=== PATIENT | female | born 1940 | race Caucasian/White ===

== ENCOUNTER 2018-07-03 21:44 | Observation (INO) | payer MEDICARE, BC ==
[2018-07-03] MEDS ORDERED: Ondansetron 4 MG/2 ML SDV IV ONE (22:44)
[2018-07-03] MEDS ORDERED: Lactated Ringers 1,000 ML IV ONE (22:52)
[2018-07-03 23:06] LABS: ANION GAP 18.2; CHLORIDE,CL 98 mmol/L (101-111); SODIUM,NA 136 mmol/L (135-145)
[2018-07-03] MEDS ORDERED: Famotidine 20 MG/2 ML SDV IVPUSH ONE (23:26)
[2018-07-03] MEDS ORDERED: Potassium Chloride 10 MEQ in Premix Bag 1 BAG IV ONE (23:26)
[2018-07-03] MEDS ORDERED: Sodium Chloride 0.9% 500 ML IV SCH (23:30)
[2018-07-04] MEDS ORDERED: Metoclopramide 10 MG/2 ML SDV IVPUSH ONE (01:07)
--- NOTE | 2018-07-04 01:16 | EDM.PDOC ---
ED HPI GENERAL MEDICAL PROBLEM - General Chief Complaint: Gastrointestinal Problem Stated Complaint: NOT FEELING GOOD Time Seen by Provider: 07/03/18 21:55 Source of Information: Reports: Patient History Limitations: Reports: No Limitations - History of Present Illness INITIAL COMMENTS - FREE TEXT/NARRATIVE: ED with c/o not feeling well today, nauseated all day vomited 7-8 times last one hour [employer]. Feeling weak tonight. Multiple diarrhea stools throughout day. Denies pain. One brown emesis, follwed by clear yellow liuid emesis. No bloody or dark stools no fever. Mild selling lower extremities no change from usual. No headache. Increased magnesium on Monday from 400 daily to 400 twice daily, no sx with change. No family members ill. - Related Data Allergies Allergy/AdvReac Type Severity Reaction Status Date / Time No Known Allergies Allergy Verified 07/03/18 21:54 Home Meds: Home Meds Acetaminophen [Tylenol] 1,300 mg PO BEDTIME 07/03/18 [History] Biotin 5 mg PO DAILY 07/03/18 [History] Calcium Carbonate/Vitamin D3 [Calcium 600 + Vit D Tablet] 1 each PO DAILY [History] Cetirizine [ZyrTEC] 10 mg PO DAILY 07/03/18 [History] Cholecalciferol (Vitamin D3) [Vitamin D3] 1,000 unit PO DAILY 07/03/18 [History] Fish Oil/Marion-3 Fatty Acids [Fish Oil 1,000 MG] 1 gm PO DAILY 07/03/18 [History ] Folic Acid 0.8 mg PO DAILY 07/03/18 [History] Lutein 6 mg PO DAILY 07/03/18 [History] Magnesium Oxide [Magnesium] 800 mg PO DAILY 07/03/18 [History] Methotrexate Sodium [Methotrexate] 15 mg PO WEEKLY 07/03/18 [History] Simvastatin [Zocor] 10 mg PO BEDTIME 07/03/18 [History] Triamterene/Hydrochlorothiazid [Triamterene-HCTZ 37.5-25 MG] 1 cap DAILY [History] Turmeric 400 mg PO DAILY 07/03/18 [History] Past Medical History HEENT History: Reports: Impaired Vision Other HEENT History: wears glasses Cardiovascular History: Reports: High Cholesterol, Hypertension Musculoskeletal History: Reports: RA Oncologic (Cancer) History: Reports: Breast - Past Surgical History Musculoskeletal Surgical History: Reports: Hip Replacement Other Musculoskeletal Surgeries/Procedures:: right hip Oncologic Surgical History: Reports: Mastectomy Other Oncologic Surgeries/Procedures: left breast Social & Family History - Family History Family Medical History: Noncontributory - Tobacco Use Smoking Status *Q: Never Smoker - Caffeine Use Caffeine Use: Reports: Coffee - Recreational Drug Use Recreational Drug Use: No ED ROS GENERAL - Review of Systems Review Of Systems: ROS reveals no pertinent complaints other than HPI. ED EXAM, GI/ABD - Physical Exam Exam: See Below Exam Limited By: No Limitations General Appearance: Alert, Mild Distress Eyes: Bilateral: EOMI Ears: Normal External Exam Nose: Normal Inspection Throat/Mouth: Normal Inspection Head: Atraumatic, Normocephalic Neck: Normal Inspection Respiratory/Chest: No Respiratory Distress, Lungs Clear, Normal Breath Sounds Cardiovascular: Normal Peripheral Pulses, Regular Rate, Rhythm GI/Abdominal Exam: Abnormal Bowel Sounds (hyperactive). No: Distended, Guarding , Tender Back Exam: Full Range of Motion Extremities: Pedal Edema (1+) Neurological: Alert, Oriented, Normal Cognition, Normal Gait (with walker), No Motor/Sensory Deficits Psychiatric: Normal Affect, Normal Mood Skin Exam: Warm, Dry, Intact, Pallor Course - Vital Signs Last Recorded V/S: Last Vital Signs Temp 98.7 F 07/03/18 21:52 Pulse 96 07/03/18 21:52 Resp 19 07/03/18 21:52 BP 188/89 H 07/03/18 21:52 Pulse Ox 97 07/03/18 21:52 - Orders/Labs/Meds Orders: Active Orders 24 hr Category Date Time Status MAGNESIUM [CHEM] Stat Lab 07/04/18 00:00 Received UA RFX LEVON AND CULT IF INDIC [URIN] Urgent Lab 07/03/18 22:29 Ordered Sodium Chloride 0.9% [Normal Saline] 500 ml Med 07/03/18 23:30 Active IV .BOLUS Medication Orders Sodium Chloride (Normal Saline) 500 mls @ 100 mls/hr IV .BOLUS BINA Last Admin: 07/03/18 23:36 Dose: 100 mls/hr Labs: Laboratory Tests 07/03/18 07/03/18 Range/Units 22:01 22:01 WBC 7.6 (5.0-10.0) 10^3/uL RBC 4.42 (4.2-5.4) 10^6/uL Hgb 15.0 (12.0-16.0) g/dL Hct 42.8 (37.0-47.0) % MCV 96.8 (80-100) fL MCH 33.9 (27.0-34.0) pg MCHC 35.0 (33.0-35.0) g/dL Plt Count 257 (150-450) 10^3/uL Neut % (Auto) 78.9 H (42.2-75.2) % Lymph % (Auto) 14.7 L (20.5-50.1) % Gosper % (Auto) 5.4 (2-8) % Eos % (Auto) 0.5 L (1.0-3.0) % Baso % (Auto) 0.5 (0.0-1.0) % Sodium 136 (135-145) mmol/L Potassium 3.2 L (3.6-5.0) mmol/L Chloride 98 L (101-111) mmol/L Carbon Dioxide 23.0 (21.0-31.0) mmol/L Anion Gap 18.2 BUN 15 (7-18) mg/dL Creatinine 0.7 (0.6-1.3) mg/dL Est Cr Clr Drug Dosing 54.08 mL/min Estimated GFR (MDRD) > 60 BUN/Creatinine Ratio 21.42 Glucose 128 H (74-105) mg/dL Calcium 9.6 (8.4-10.2) mg/dl Total Bilirubin 0.9 (0.2-1.0) mg/dL AST 28 (10-42) IU/L ALT 16 (10-60) IU/L Alkaline Phosphatase 80 (42-121) IU/L Troponin I < 0.02 (0.00-0.02) ng/ml B-Natriuretic Peptide 104 H (0-100) pg/ml Total Protein 6.7 (6.7-8.2) g/dl Albumin 3.8 (3.2-5.5) g/dl Globulin 2.9 Albumin/Globulin Ratio 1.31 Amylase 95 (28-100) U/L Lipase 27 (22-51) U/L Meds: Medications Generic Name Dose Route Start Last Admin Trade Name Freq PRN Reason Stop Dose Admin Sodium Chloride 500 mls @ 100 mls/hr 07/03/18 23:30 07/03/18 23:36 Normal Saline IV 100 mls/hr .BOLUS BINA Administration Discontinued Medications Generic Name Dose Route Start Last Admin Trade Name Hubert PRN Reason Stop Dose Admin Famotidine 20 mg 07/03/18 23:26 07/03/18 23:36 Pepcid IVPUSH 07/03/18 23:27 20 mg ONETIME ONE Administration Lactated Ringer's 1,000 mls @ 999 mls/hr 07/03/18 22:52 07/03/18 22:56 Ringers, Lactated IV 07/03/18 23:52 999 mls/hr .BOLUS ONE Administration Potassium Chloride 10 meq/ 100 mls @ 100 mls/hr 07/03/18 23:26 07/03/18 23:37 Premix IV 07/04/18 00:25 100 mls/hr ONETIME ONE Administration Metoclopramide HCl 5 mg 07/04/18 01:07 Reglan IVPUSH 07/04/18 01:08 ONETIME ONE Ondansetron HCl 4 mg 07/03/18 22:44 07/03/18 22:56 Zofran IV 07/03/18 22:45 4 mg ONETIME ONE Administration - Re-Assessments/Exams Free Text/Narrative Re-Assessment/Exam: 07/04/18 01:22 nausea improved but continues, mild dizziness with position change, does fair ambulating with walker. TC consult Dr Landin accepting patient observation status, Vitals stable, No orthostatic change from sitting to standing. Departure - Departure Time of Disposition: 01:18 Disposition: Refer to Observation Condition: Good Clinical Impression: Gastroenteritis, HX: breast cancer Hypertension Qualifiers: Hypertension type: essential hypertension Qualified Code(s): I10 - Essential ( primary) hypertension Rheumatoid arthritis Qualifiers: Rheumatoid arthritis location: multiple sites Rheumatoid factor presence: unspecified presence Qualified Code(s): M06.9 - Rheumatoid arthritis, unspecified - Discharge Information *PRESCRIPTION DRUG MONITORING PROGRAM REVIEWED*: Not Applicable *COPY OF PRESCRIPTION DRUG MONITORING REPORT IN PATIENT HEIDI: Not Applicable Referrals: Chayo Chavis MD [Primary Care Provider] - Forms: ED Department Discharge - My Orders Last 24 Hours: My Active Orders 07/03/18 22:29 UA RFX LEVON AND CULT IF INDIC [URIN] Urgent 07/03/18 23:30 Sodium Chloride 0.9% [Normal Saline] 500 ml IV .BOLUS 07/04/18 00:00 MAGNESIUM [CHEM] Stat - Assessment/Plan Last 24 Hours: My Active Orders 07/03/18 22:29 UA RFX LEVON AND CULT IF INDIC [URIN] Urgent 07/03/18 23:30 Sodium Chloride 0.9% [Normal Saline] 500 ml IV .BOLUS 07/04/18 00:00 MAGNESIUM [CHEM] Stat
[2018-07-04] MEDS ORDERED: Ondansetron 4 MG/2 ML SDV IVPUSH PRN (02:15)
[2018-07-04] MEDS ORDERED: Promethazine 25 MG/ML SDV IM PRN (02:15)
[2018-07-04] MEDS ORDERED: Acetaminophen 325 MG Tab PO PRN (02:15)
[2018-07-04] MEDS ORDERED: Pantoprazole 40 MG Vial IVPUSH ONE (02:15)
[2018-07-04] MEDS ORDERED: Magnesium Sulfate/Water 2 GM in Premix Bag 1 BAG IV ONE (02:19)
[2018-07-04] MEDS ORDERED: NS + KCl 20mEq/L 1,000 ML IV SCH (02:30)
--- NOTE | 2018-07-04 03:31 | HP ---
CHIEF COMPLAINT: Nausea, vomiting, and diarrhea. HISTORY OF PRESENTING ILLNESS: Mrs. Lenka Sousa is a 78-year-old female with a medical history significant for hypertension; hyperlipidemia; rheumatoid arthritis; history of breast cancer, status post mastectomy; history of hemorrhoids and osteoarthritis with pityriasis rosea history, presented to the ER with complaints of nausea, vomiting, and diarrhea, and complaints of dizziness leading to dehydration, requiring admission to the hospital. At this time, the patient claims that the nausea, vomiting, and diarrhea started yesterday, and has been progressively getting worse. She had at least 5 to 6 episodes of vomiting and 3 to 4 episodes of loose stools consistent with diarrhea. Her stays with her, but he apparently is in normal health. She denies any recent exposure to bad food. She claims that recently her medication was changed, her magnesium was increased to 800 mg from 400 mg, so she is unsure if that is leading to her gastroenteritis symptoms. She denied any fevers or chills in the last few days. No complaints of hematemesis, hematochezia, or melenic stools. No complaints of chest pain. No complaints of shortness of breath. No complaints of abdominal pain at this time. No complaints of cough with sputum in the last few days. The patient denied any history of chest pains on exertion. No history of dyspnea on exertion. No history of orthopnea or paroxysmal nocturnal dyspnea. The patient denied any history of hematemesis, hematochezia, or melenic stools in the past. Normal bowel and bladder habits otherwise. REVIEW OF SYSTEMS: A complete review of systems including skin; ear, nose, and throat; cardiovascular system; respiratory system; gastrointestinal system; genitourinary system; hematology; oncology; neurology; allergy; immunology; constitutional were all evaluated and were negative except for the above-said notes. PAST MEDICAL HISTORY: Significant for hypertension; hyperlipidemia; rheumatoid arthritis; allergic rhinitis; history of hemorrhoids; and history of breast neoplasm, status post mastectomy. PAST SURGICAL HISTORY: Significant for total hip replacement, mastectomy, colonoscopy, and bilateral tubal destruction. FAMILY HISTORY: Significant for diabetes in her father, sister with breast cancer and brother with diabetes, 1 brother with prostate cancer, and maternal aunt with breast cancer and ovarian cancer. SOCIAL HISTORY: The patient denies any history of smoking tobacco. No history of alcohol intake. ALLERGIES: No known drug allergies. HOME MEDICATIONS: Include, 1. Turmeric 400 mg daily. 2. Triamterene-hydrochlorothiazide 1 capsule daily. 3. Simvastatin 10 mg at bedtime. 4. Methotrexate 15 mg weekly. 5. Magnesium oxide 800 mg daily. 6. Lutein 6 mg daily. 7. Cetirizine 10 mg daily. 8. Biotin 5 mg daily. 9. Tylenol 1300 mg at bedtime. 10.Folic acid 0.8 mg daily. 11.Vitamin D3, 1000 units daily. PHYSICAL EXAMINATION: Vital Signs: Temperature of 98.7, pulse of 96, blood pressure 188/89, respiratory rate of 19, and saturating at 97% on room air. General Appearance: The patient is well oriented to time, place, and person. Follows commands spontaneously. Cardiovascular System: S1, S2 heard with normal intensity. No gallops. Respiratory System: Clear to auscultation bilaterally. No wheeze. No crepitations. Abdomen: Soft. Bowel sounds positive. Nontender. No rigidity. Extremities: No edema in bilateral lower extremities. Neurologic: No gross focal neurological deficits. LABORATORY DATA: 1. WBC 7.6, hemoglobin 15, hematocrit 42.8, platelet count 257. 2. Sodium 136, potassium 3.2, chloride 98, bicarb 23, BUN 15, creatinine 0.7, glucose 128, magnesium 1.4, troponin 0.02, BNP 104. 3. Albumin 3.8. ASSESSMENT: 1. Acute gastroenteritis. 2. Acute hypokalemia. 3. Hypomagnesemia. 4. Hypertension. 5. Hyperlipidemia. 6. History of rheumatoid arthritis. 7. History of breast cancer in the past. PLAN: 1. Acute gastroenteritis: The patient presents with nausea, vomiting, and diarrhea, and is noted to have acute gastroenteritis, exact etiology is not clear. The patient claims that her magnesium oxide dose has been increased to 800 mg, and claims that after increasing the dose, she has been experiencing more nausea and vomiting. The patient will be admitted to the hospital. We will have her on antiemetic protocol. We will keep her hydrated with IV fluids. If she continues to have diarrhea, then one might consider getting stool for ova, cyst, and parasite and culture. We will closely follow. 2. Acute dehydration: The patient is noted to be dehydrated. She is complaining of dizziness on ambulation. We will continue with IV fluids for now. We will recheck orthostatic vitals after she is done with her IV fluids. 3. Hypokalemia: We will replace with IV and oral potassium chloride. We will mix 20 mEq to the IV bag and then check a BMP in the next 8 hours. 4. Hypomagnesemia: Recently, her dose has been increased to 800 mg and still continues to have hypomagnesemia. We will replace with IV magnesium while in the hospital. We will closely follow. 5. DVT prophylaxis: We will have her on Lovenox for DVT prophylaxis. 6. Hypertension: The patient's blood pressure seems to be elevated, unsure if this is resulting from stress. She is noted to be on triamterene- hydrochlorothiazide, which would be a bad medication especially given her electrolyte imbalance. We will try to switch her to either DELIA inhibitor or a calcium channel pipo for better control of the blood pressure. We will closely follow. We will hold her diuretic at this time. 7. Code status: The patient wants to be full code. 8. Discussed with [facility] staff regarding the plan of care. Reviewed the labs and medications. Reviewed the old charts. [facility] /[id number]
[2018-07-04] MEDS ORDERED: Enoxaparin 40 MG/0.4 ML Syringe SUBCUT SCH (09:00)
[2018-07-04] MEDS ORDERED: Non-Formulary Medication 1 Each (Folic Acid [Folic Acid] 0.8 MG) PO SCH (09:00)
[2018-07-04] MEDS: Enoxaparin 30 MG/0.3 ML Syringe SUBCUT SCH (09:19)
[2018-07-04 10:30] LABS: ANION GAP 15.4; CHLORIDE,CL 100 mmol/L (101-111); SODIUM,NA 135 mmol/L (135-145)
[2018-07-04] MEDS ORDERED: Magnesium Sulfate/D5W 2 GM in Premix Bag 1 BAG IV ONE (11:00)
[2018-07-04] MEDS ORDERED: Sodium Chloride 0.9% 10 ML Syringe FLUSH PRN (11:20)
[2018-07-04] MEDS: Sodium Chloride 0.9% with KCl 1,000 ML IV SCH ×2 (11:34→21:51)
[2018-07-04] MEDS ORDERED: Magnesium Sulfate/Water 2 GM in Premix Bag 1 BAG IV SCH (12:00)
[2018-07-04] MEDS: Folic Acid 1 MG Tab PO SCH (16:45)
[2018-07-04 18:55] LABS: ANION GAP 13.7; CHLORIDE,CL 105 mmol/L (101-111); SODIUM,NA 138 mmol/L (135-145)
[2018-07-04] MEDS: Simvastatin 10 MG Tab PO SCH (20:36)
[2018-07-04] MEDS: Acetaminophen 325 MG Tab PO SCH (20:37)
[2018-07-05 07:07] LABS: ANION GAP 12.9; CHLORIDE,CL 105 mmol/L (101-111); SODIUM,NA 136 mmol/L (135-145)
[2018-07-05] MEDS: Sodium Chloride 0.9% with KCl 1,000 ML IV SCH ×2 (08:10→19:21)
[2018-07-05] MEDS: Folic Acid 1 MG Tab PO SCH (08:16)
[2018-07-05] MEDS: Enoxaparin 30 MG/0.3 ML Syringe SUBCUT SCH (08:16)
[2018-07-05] MEDS ORDERED: Loratadine 10 MG Tab PO SCH (09:00)
[2018-07-05] MEDS ORDERED: Magnesium Sulfate/Water 2 GM in Premix Bag 1 BAG IV ONE (12:00)
[2018-07-05] MEDS: Calcium Gluconate 1 GM in Sodium Chloride 0.9% 100 ML IV SCH ×2 (13:46→17:55)
--- NOTE | 2018-07-05 13:56 | PN ---
DATE: 07/05/2018 SUBJECTIVE: Lenka is a 78-year-old woman who was admitted early yesterday morning for significant weakness after almost 12 hours of both vomiting as well as diarrhea. She had been feeling well up until that point. There was no concern about food poisoning. There has been quite a bit of viral gastroenteritis in the community as of late. Of particular note, Lenka does have a past history of low magnesium as well as occasional hypokalemia and doing a chart review, it appears as though her calcium also runs on the low end of normal. Upon her admission, she was concerned that possibly having her magnesium dose increased had caused her gastroenteritis, but she has done well since admission, and her diarrhea has lessened significantly. Upon admission, she was found to be quite low with her magnesium as well as her potassium. These have both been replaced IV on multiple occasions since admission. This morning, as I approach, eLnka reports that she is feeling quite a bit better, no longer feels that same weakness, and was able to get up to the bathroom under her own power without difficulty this morning. OBJECTIVE: Vital Signs: This morning, I had them do orthostatic blood pressures this morning. She was 149/83 lying down, 183/84 sitting up, and 182/85 standing. Heart rate was 76. Of note, with those orthostatic blood pressures, her heart rate did not increase significantly between laying and standing. Respiratory rate 16. O2 sat 97% on room air. General: Lenka is a pleasant 78-year-old woman in no acute distress. She is alert and oriented x3. HEENT: Oropharynx is clear. Mucous membranes are moist. Heart: Regular rate and rhythm. No murmurs noted. Lungs: Clear to auscultation throughout. Neurologic: She is moving all of her extremities well. She is alert and oriented x3. Cranial nerves 2 through 12 are grossly intact. LABORATORY DATA: Laboratory work this morning includes; hemoglobin of 13.1, potassium 3.9, sodium 136, chloride 105, creatinine 0.5; calcium 8.2, down from 8.4 yesterday. Phosphorus 2.2, down from 3.0 on admission. Magnesium is 1.6 today, was 1.7 yesterday morning; after replacement yesterday, it had increased to 2.0. ASSESSMENT: A 78-year-old woman admitted for, 1. Significant weakness and dehydration, secondary to vomiting and diarrhea. 2. Hypocalcemia. 3. Hypomagnesemia. 4. Hypophosphatemia. 5. Current history of rheumatoid arthritis, currently on methotrexate. PLAN: 1. We will replace her calcium and magnesium today, and recheck those levels as well as her phosphate level in the morning. 2. We will need to get her up and ambulating today and keep an eye on those blood pressures. I am concerned that her blood pressure is going up with activity. She does have a history of essential hypertension. 3. Because of her electrolyte replacement needs, I do not anticipate discharge until we get those stabilized. [facility] /[id number]
[2018-07-05] MEDS ORDERED: Famotidine 20 MG Tab PO PRN (17:17)
[2018-07-05] MEDS: Acetaminophen 325 MG Tab PO SCH (21:13)
[2018-07-05] MEDS: Simvastatin 10 MG Tab PO SCH (21:13)
[2018-07-06] MEDS: Sodium Chloride 0.9% with KCl 1,000 ML IV SCH (05:31)
[2018-07-06 07:16] LABS: ANION GAP 12.2; CHLORIDE,CL 107 mmol/L (101-111); SODIUM,NA 138 mmol/L (135-145)
[2018-07-06] MEDS: Folic Acid 1 MG Tab PO SCH (09:02)
[2018-07-06] MEDS: Enoxaparin 30 MG/0.3 ML Syringe SUBCUT SCH (09:02)
--- NOTE | 2018-07-07 07:14 | DISCH ---
HISTORY OF PRESENT ILLNESS: Lenka is a 78-year-old woman who was admitted with weakness as well as dehydration after having several hour history of nausea, vomiting, and diarrhea. She was noted to have multiple electrolytes abnormalities upon her presentation to the ER as well. HOSPITAL COURSE: Lenka was placed inpatient and given fluid rehydration as well as electrolyte replacement, including potassium and magnesium. On hospital day #1, she was still found to be low of both calcium and magnesium, so those were again replaced IV. By hospital day #2 day of discharge, she was feeling well, able to ambulate without any dizziness or issues, and was deemed suitable for discharge home. As her triamterene/hydrochlorothiazide had been held upon admission, her blood pressures were significantly elevated into the 160s and 170s systolic. She was not having any headache or vision changes because of this. DISCHARGE DIAGNOSES: 1. Acute dehydration secondary to vomiting and diarrhea, resolved. 2. Acute viral gastroenteritis, resolved. 3. Electrolyte imbalance secondary to dehydration as well as chronic diuretic use for hypertension. 4. Essential hypertension. PLAN: 1. She is discharged home today. 2. We will discontinue the triamterene/hydrochlorothiazide for now, I will switch her over to losartan and see if we can still get good blood pressure control without the chronic electrolyte abnormalities that we have been dealing with. 3. We will have her follow up with her primary care provider, Dr. Chavis, one of our partners next week to make sure that blood pressure control is remaining stable and that her electrolytes are also still within normal limits. [facility] /[id number]
[2018-07-09] MEDS ORDERED: Methotrexate 2.5 MG Tab PO SCH (08:00)
== END 2018-07-06 13:30 | disposition home or self-care (01) ==
LOC: DL.ED 21:44 → UNDOADMOB 07-04 01:21 → DL.MS 07-04 01:21
PROVIDERS: ADMIT Internal Medicine; ATTEND Internal Medicine
DX: A08.4 Viral intestinal infection, unspecified (principal); E86.0 Dehydration; E87.6 Hypokalemia; E83.42 Hypomagnesemia; E83.39 Other disorders of phosphorus metabolism; I10 Essential (primary) hypertension; E78.00 Pure hypercholesterolemia, unspecified; M06.9 Rheumatoid arthritis, unspecified; Z90.10 Acquired absence of unspecified breast and nipple; Z85.3 Personal history of malignant neoplasm of breast; Z79.899 Other long term (current) drug therapy
CPT/HCPCS: 36415; 80048; 80053; 81003; 82150; 82272; 82306; 82330; 83690; 83735; 83880; 83970; 84100; 84484; 85025; 85027; 96361; 96365; 96375; 99284; A9270; C9113; J0610; J1650; J2405; J2765; J3475; J3480; J3490; J7040; J7050; J7120; 96366; 96367; 96368; 96372; 96376; 99283; G0378

== ENCOUNTER 2019-04-12 06:22 | Day surgery (SDC) | payer MEDICARE, BC ==
[~2019-04-12 06:22] MED LIST: Midazolam 1 MG/ML 2 ML SDV ONE; fentaNYL 100 MCG/2 ML SDV ONE
[2019-04-12] MEDS ORDERED: fentaNYL 100 MCG/2 ML SDV IV ONE ×3 (06:23→06:54)
[2019-04-12] MEDS ORDERED: Midazolam 1 MG/ML 2 ML SDV IV ONE ×5 (06:23→06:59)
[2019-04-12] MEDS ORDERED: Dextrose 5%-0.45% NaCl 1,000 ML IV SCH (06:45)
--- NOTE | 2019-04-12 09:55 | OR ---
DATE: 04/12/2019 PROCEDURE: Total colonoscopy. INSTRUMENT USED: PCF-H190DL Olympus video colonoscope. PREMEDICATIONS: Fentanyl 100 mcg intravenous, Versed 3 mg intravenous. Nasal O2 cannula. The procedure was done under pulse oximetry, BP recording, and site monitor. INDICATION: The patient with recent rectal bleeding and previous colonic adenoma. Colonoscopic examination is done for detection of any polypoid lesions and removal, endoscopic hemostasis therapy if needed. DESCRIPTION OF PROCEDURE: Initial rectal exam was unremarkable. Rigid anoscopy showed small internal hemorrhoids without bleeding from them. Colonoscope was passed with ease. Numerous diverticula were noted in the distal left colon along with some deformity. The scope was passed with ease up to the ileocecal area. Photographs were taken of the normal-appearing cecum identified by landmarks of appendiceal orifice and double-bulged ileocecal folds. No bleeding was noted from any of the visualized areas at the commencement of the examination. No stricture. No vascular ectasia. No large isolated ulcerations seen. No evidence of diffuse inflammatory bowel disease in the form of friability, contact bleeding, or ulcerations. No polyp or tumor mass identified. Probing the proximal sides of folds and flexures using adequate distention and clearing up the stool material, withdrawal of the scope was made, cecum to rectum time over 6 minutes. No bleeding was noted from any of the visualized areas. IMPRESSION: 1. Internal hemorrhoids. 2. Diverticulosis. The patient tolerated the procedure well. [facility] /[id number]
== END 2019-04-12 09:20 | disposition home or self-care (01) ==
LOC: DL.ENDO 06:22
PROVIDERS: ATTEND Internal Medicine Gastroenterology
DX: K62.5 Hemorrhage of anus and rectum (principal); K64.8 Other hemorrhoids; K57.30 Diverticulosis of large intestine without perforation or abscess without bleeding; Z86.010 Personal history of colon polyps
CPT/HCPCS: 45378; J2250; J3010; J7042; G0121

== ENCOUNTER 2021-10-25 23:49 | Emergency (ER) | payer MEDICARE, BC ==
[2021-10-25] MEDS ORDERED: Ondansetron 4 MG Tab.DIS PO ONE (23:50)
[2021-10-25] MEDS ORDERED: Ondansetron 4 MG/2 ML SDV IVPUSH ONE (23:51)
[2021-10-26] MEDS ORDERED: Ondansetron 4 MG/2 ML SDV IVPUSH ONE (00:01)
[2021-10-26 00:40] LABS: CORONAVIRUS COVID-19 NAA NEGATIVE (NEGATIVE)
[2021-10-26 00:43] LABS: ANION GAP 15.6 mEq/L (7-13)
[2021-10-26] MEDS ORDERED: Ondansetron 4 MG Tab.DIS ONE (02:56)
== END 2021-10-26 03:14 | disposition home or self-care (01) ==
LOC: DL.ED 23:49
DX: N39.0 Urinary tract infection, site not specified (principal); M06.9 Rheumatoid arthritis, unspecified; E78.00 Pure hypercholesterolemia, unspecified; I10 Essential (primary) hypertension; Z79.899 Other long term (current) drug therapy; Z20.822 Contact with and (suspected) exposure to COVID-19
CPT/HCPCS: 0240U; 36415; 80053; 81001; 82150; 83605; 83690; 83735; 84443; 84484; 85025; 85610; 86140; 87040; 87077; 87086; 87088; 87186; 93010; 96365; 96375; 99284; A9270; J0696; J2405

== ENCOUNTER 2023-05-06 12:00 | Emergency (ER) | payer MEDICARE, BC ==
[2023-05-06 12:23] LABS: BASOPHILS PERCENT AUTO 0.8 % (0.0-1.0); EOSINOPHILS PERCENT AUTO 2.9 % (1.0-3.0); HEMATOCRIT 41.8 % (37.0-47.0); HEMOGLOBIN 14.6 g/dL (12.0-16.0); LYMPHOCYTES PERCENT AUTO 38.3 % (20.5-50.1); MEAN CORPUSCULAR HEMOGLOBIN 35.5 pg (27.0-34.0); MEAN CORPUSCULAR HGB CONC 34.9 g/dL (33.0-35.0); MEAN CORPUSCULAR VOLUME 101.7 fL (80-100); MONOCYTES PERCENT AUTO 7.8 % (2-8); NEUTROPHILS PERCENT AUTO 50.2 % (42.2-75.2); PLATELET COUNT,PLT 212 10^3/uL (150-450); RED BLOOD CELL COUNT 4.11 10^6/uL (4.2-5.4); WHITE BLOOD CELL COUNT,WBC 5.3 10^3/uL (5.0-10.0)
[2023-05-06 12:47] LABS: A/G RATIO 1.1; ALBUMIN 3.8 g/dL (3.4-5.0); ANION GAP 12.1 mEq/L (7-13); BILIRUBIN TOTAL 0.5 mg/dL (0.2-1.0); BUN/CREATININE RATIO 23.5 (No establ ref range); CREATININE 0.85 mg/dL (0.55-1.02); EST CRCL DRUG DOSING (CG) 43.67 mL/min; POTASSIUM,K 4.1 mmol/L (3.5-5.1); PROTEIN TOTAL,TP 7.4 g/dL (6.4-8.2)
== END 2023-05-06 14:33 | disposition home or self-care (01) ==
LOC: DL.ED 12:00
DX: R07.89 Other chest pain (principal); I10 Essential (primary) hypertension; E78.00 Pure hypercholesterolemia, unspecified; Z79.899 Other long term (current) drug therapy
CPT/HCPCS: 36415; 71046; 80053; 84484; 85025; 85379; 93005; 93010; 99284; 99285

== ENCOUNTER 2024-11-25 12:02 | Emergency (ER) | payer MEDICARE, BC | END 2024-11-25 13:29 | disposition home or self-care (01) | LOC: DL.ED 12:02 | DX: F41.0 Panic disorder [episodic paroxysmal anxiety] (principal); F43.9 Reaction to severe stress, unspecified; I10 Essential (primary) hypertension; E78.00 Pure hypercholesterolemia, unspecified; Z79.899 Other long term (current) drug therapy | CPT/HCPCS: 93010; 99283 ==

== ENCOUNTER 2024-12-22 14:24 | Emergency (ER) | payer MEDICARE, BC ==
[2024-12-22] MEDS ORDERED: Sodium Chloride 0.9% 10 ML Syringe FLUSH PRN (14:43)
[2024-12-22] MEDS: Ondansetron 4 MG/2 ML SDV IVPUSH ONE (14:47)
[2024-12-22] MEDS: Ondansetron 4 MG/2 ML SDV ONE (14:47)
[2024-12-22 14:58] LABS: BASOPHILS PERCENT AUTO 0.3 % (0.0-1.0); EOSINOPHILS PERCENT AUTO 1.3 % (1.0-3.0); LYMPHOCYTES PERCENT AUTO 25.0 % (20.5-50.1); MONOCYTES PERCENT AUTO 8.9 % (2-8); NEUTROPHILS PERCENT AUTO 64.5 % (42.2-75.2); PLATELET COUNT,PLT 192 10^3/uL (150-450); RED BLOOD CELL COUNT 3.96 10^6/uL (4.2-5.4); WHITE BLOOD CELL COUNT,WBC 6.7 10^3/uL (5.0-10.0)
[2024-12-22 15:20] LABS: APPEARANCE,URINE CLEAR (CLEAR); GLUCOSE,URINE NEGATIVE (NEGATIVE); OCCULT BLOOD,URINE TRACE-INTACT (NEGATIVE)
[2024-12-22 15:22] LABS: A/G RATIO 1.0; ALANINE AMINOTRANSFERASE,ALT 39 U/L (14-59); ASPARTATE AMNIOTRANSFERASE,AST 25 U/L (15-37); BILIRUBIN TOTAL 0.5 mg/dL (0.2-1.0); BLOOD UREA NITROGEN,BUN 19 mg/dL (7-18); CARBON DIOXIDE,CO2 29 mmol/L (21-32); CHLORIDE,CL 104 mmol/L (98-107); CREATININE 1.08 mg/dL (0.55-1.02); EST CRCL DRUG DOSING (CG) 31.76 mL/min; GLUCOSE RANDOM 138 mg/dL (70-99); PHOSPHORUS 2.7 mg/dL (2.6-4.7); POTASSIUM,K 4.1 mmol/L (3.5-5.1); PROTEIN TOTAL,TP 7.0 g/dL (6.4-8.2); SODIUM,NA 141 mmol/L (136-145)
[2024-12-22 15:23] LABS: ESTIMATED GFR 51 mL/min (>=60)
[2024-12-22 15:30] LABS: EPITHELIAL CELLS,URINE FEW /HPF (NOT SEEN)
== END 2024-12-22 16:10 | disposition home or self-care (01) ==
LOC: DL.ED 14:24
DX: R55 Syncope and collapse (principal); E86.0 Dehydration; I10 Essential (primary) hypertension; E78.00 Pure hypercholesterolemia, unspecified; Z79.899 Other long term (current) drug therapy
CPT/HCPCS: 36415; 80053; 81001; 83735; 84100; 84484; 85025; 86140; 93005; 96361; 96374; 99284; J2405; J7040